=== PATIENT | male | born 1975 | race Caucasian/White ===

== ENCOUNTER 2022-07-11 17:58 | Emergency (ER) | payer OTHER ==
[~2022-07-11] VITALS: Ht 172.7 cm; Wt 181.4 kg
[2022-07-11] MEDS ORDERED: PREDNISONE10 M2 PO (22:17)
[2022-07-11] MEDS ORDERED: SPIRONOLACTONE25 MG PO (22:19)
[2022-07-11] MEDS ORDERED: BUMETANIDE2 MG PO ×2 (22:20→22:55)
[2022-07-11] MEDS ORDERED: CARVEDILOL6.25 M1 PO (22:20)
[2022-07-11] MEDS ORDERED: ATORVASTATIN CA40 MG PO (22:21)
[2022-07-11] MEDS ORDERED: VENTOLIN HFA18 GM IH (22:22)
[2022-07-11] MEDS ORDERED: JARDIANCE10 MG PO ×2 (22:22→22:55)
[2022-07-11] MEDS ORDERED: LISINOPRIL2.5 MG PO (22:23)
[2022-07-11] MEDS ORDERED: SYMBICORT 16010.2 GM IH (22:23)
[2022-07-11] MEDS ORDERED: ST. JOSEPH ASPI81 M2 PO (22:23)
[2022-07-11] MEDS ORDERED: LANTUS SOL100 UNIT/1 SUBCUTANEO (22:24)
[2022-07-11] MEDS ORDERED: ALDACTONE25 MG PO (22:55)
[2022-07-11] MEDS ORDERED: ZESTRIL2.5 MG PO (22:55)
[2022-07-11] MEDS ORDERED: CARVEDILOL6.25 MG PO (22:55)
[2022-07-11] MEDS ORDERED: ISOSORBIDE MONO30 M2 PO (22:55)
[2022-07-11] MEDS ORDERED: BRILINTA90 MG PO (22:55)
[2022-07-11] MEDS ORDERED: LIPITOR40 M1 PO (22:55)
== END 2022-07-11 23:07 | disposition home or self-care (01) ==
LOC: ER 17:58
DX: J44.1 Chronic obstructive pulmonary disease with (acute) exacerbation (principal)